=== PATIENT | male | born 1970 | race Caucasian/White ===

== ENCOUNTER 2018-03-13 18:37 | Emergency (ER) | payer SELFPAY ==
[2018-03-13 19:22] VITALS: BP 150/90; PULSE 101; RESP 20; TEMP 100.4; O2SAT 98
--- NOTE | 2018-03-13 21:39 | C.PDOC ---
History Of Present Illness Patient reports fever, headache, cough, sore throat, L ear pain, and nausea since this morning. Denies vomiting, diarrhea, dyspnea, chest pain. He took a zpack that he had at home ([place] and some motrin this morning, but his symptoms have not completely subsided. HPI: Influenza Time Seen by Provider: 03/13/18 19:30 Chief Complaint: Flu-like Symptoms Past Medical History Reviewed: Historical Data, Nursing Documentation, Vital Signs Vital Signs: Last Vital Signs Temp 100.4 F H 03/13/18 19:13 Pulse 101 H 03/13/18 19:13 Resp 20 03/13/18 19:13 BP 150/90 03/13/18 19:13 Pulse Ox 98 03/13/18 19:13 - Medical History PMH: HTN Surgical History: Tonsillectomy Family History: States: Unknown Family Hx - Social History Hx Alcohol Use: No Hx Substance Use: No Review Of Systems Except As Marked, All Systems Reviewed And Found Negative. Constitutional: Positive for: Fever ENT: Positive for: Ear Pain Cardiovascular: Negative for: Chest Pain Respiratory: Positive for: Cough. Negative for: Shortness of Breath Gastrointestinal: Positive for: Nausea. Negative for: Vomiting, Abdominal Pain, Diarrhea Skin: Negative for: Rash Neurological: Negative for: Altered Mental Status Physical Exam - Physical Exam Appears: Non-toxic Skin: Normal Color, Warm, Dry Head: Normacephalic Eye(s): bilateral: Normal Inspection Ear(s): Bilateral: Normal Oral Mucosa: Moist Throat: Erythema, No Exudate, No Drooling, No Mass Chest: Symmetrical Cardiovascular: Rhythm Regular Respiratory: Normal Breath Sounds Gastrointestinal/Abdominal: Normal Exam Extremity: Normal ROM Neurological/Psych: Oriented x3 Medical Decision Making Medical Decision Making: Patient given tylenol, zofran, and tamiflu PO. Will give tamiflu and treat clinically. Patient asking to go home after receiving medications, states that kasandra lund is tired because it took too long for him to get seen, and he would like to go home and sleep. - ECG O2 Sat by Pulse Oximetry: 98 Disposition - Disposition Disposition: HOME/ ROUTINE Disposition Time: 21:45 Condition: STABLE Additional Instructions: JOSE PLASENCIA, thank you for letting us take care of you today. Your provider was Molly Baptiste MD and you were treated for FLU LIKE SYMPTOMS. The emergency medical care you received today was directed at your acute symptoms. If you were prescribed any medication, please fill it and take as directed. It may take several days for your symptoms to resolve. Return to the Emergency Department if your symptoms worsen, do not improve, or if you have any other problems. Please contact your doctor or call one of the physicians/clinics you have been referred to that are listed on the Patient Visit Information form that is included in your discharge packet. Bring any paperwork you were given at discharge with you along with any medications you are taking to your follow up visit. Our treatment cannot replace ongoing medical care by a primary care provider outside of the emergency department. Thank you for allowing the [facility] team to be part of your care today. If you had an X-Ray or CT scan: A Radiologist will review the ED reading if any change in treatment is needed we will contact you. If you had a blood, urine, or wound culture: It will take several days for the results, if any change in treatment is needed we will contact you. If you had an STI test: It will take 48 hours for the results. Please call after 1 week if you have not heard back. Prescriptions: Oseltamivir Phosphate [Tamiflu] 75 mg PO BID 7 Days capsule Instructions: Flu, Adult (DC) Forms: [employer] (Telugu) - Clinical Impression Clinical Impression: Influenza
== END 2018-03-13 21:55 | disposition home or self-care (01) ==
LOC: C.ER 18:37
DX: J11.1 Influenza due to unidentified influenza virus with other respiratory manifestations (principal); I10 Essential (primary) hypertension